=== PATIENT | male | born 1970 | race Caucasian/White ===

== ENCOUNTER 2025-04-05 12:08 | Inpatient (IN) | payer OTHER ==
[~2025-04-05] VITALS: Ht 172.7 cm; Wt 85.3 kg
[~2025-04-05 12:08] MED LIST: 'PARAFON FORTE500 M1 PO; CYCLOBENZAPRINE5 M3 PO; HYDROCODONE BIT1 T11 PO; MEDROL DOSEPAK4 MG PO; NAPROSYN500 MG PO
[2025-04-05 12:34] VITALS: BP 150/85
[2025-04-05] MEDS ORDERED: cefTRIAXone Sodium 1 GM/10 ML SYR IV ONE (12:45)
[2025-04-05] MEDS ORDERED: Ketorolac Tromethamine 15 MG/ML VIAL IV ONE (12:45)
[2025-04-05] MEDS ORDERED: ACETAMINOPHEN 325 MG TAB PO ONE (12:45)
[2025-04-05] MEDS ORDERED: SODIUM CHLORIDE 0.9% 1,000 ML IV ONE ×2 (12:45→14:40)
[2025-04-05 13:09] LABS: HEMATOCRIT 48.8 % (42.0-52.0); MEAN CELL VOLUME 89.2 fl (80.0-94.0); MEAN CORPUSCULAR HGB 29.6 pg (27.0-31.0); MEAN CORPUSCULAR HGB CONC 33.2 g/dl (33.0-37.0); PLATELET COUNT AUTOMATED 267 10*3/uL (130-400); RED BLOOD COUNT 5.47 10*6/uL (4.50-5.90); WHITE BLOOD COUNT 28.5 10*3/uL (4.8-10.8)
[2025-04-05 13:12] LABS: MANUAL DIFF REFLEX YES
[2025-04-05 13:29] LABS: BUN 13 mg/dl (9-23); CHLORIDE 101 mmol/L (98-107); POTASSIUM 4.2 mmol/L (3.4-5.1)
[2025-04-05 13:33] LABS: PLATELET SUFFICIENCY NORMAL (NORMAL); TOTAL CELLS COUNTED 100 #CELLS
[2025-04-05 14:23] VITALS: BP 148/78
[2025-04-05] MEDS ORDERED: IOHEXOL 300 MG/ML 100 ML VIAL IV ONE (14:45)
[2025-04-05] MEDS ORDERED: OXYCODONE5 M1 PO (15:30)
[2025-04-05] MEDS ORDERED: METHOCARBAMOL500 M1 PO (15:32)
[2025-04-05] MEDS ORDERED: BISACODYL 10 MG SUPP R PRN (18:10)
[2025-04-05] MEDS ORDERED: ACETAMINOPHEN 650 MG SUPP R PRN (18:10)
[2025-04-05] MEDS ORDERED: TEMAZEPAM 15 MG CAP PO PRN (18:10)
[2025-04-05] MEDS ORDERED: Ondansetron Hydrochloride 4 MG/2 ML VIAL IV PRN (18:10)
[2025-04-05] MEDS ORDERED: ACETAMINOPHEN 325 MG TAB PO PRN (18:10)
[2025-04-05] MEDS ORDERED: BISACODYL 5 MG TAB PO PRN (18:10)
[2025-04-05] MEDS ORDERED: Magnesium Hydroxide 30 ML UDC PO PRN (18:10)
[2025-04-05] MEDS ORDERED: SODIUM CHLORIDE 0.9% 500 ML IV ONE (18:25)
[2025-04-05] MEDS ORDERED: Vancomycin Hydrochloride 1,000 MG in SODIUM CHLORIDE 0.9% 250 ML IV SCH (18:40)
[2025-04-05] MEDS ORDERED: OXYCODONE HCL (IR) 5 MG TAB PO PRN (18:50)
[2025-04-05] MEDS ORDERED: METHOCARBAMOL 500 MG TAB PO PRN (18:50)
[2025-04-05] MEDS ORDERED: VANCOMYCIN HCL 1,250 MG in SODIUM CHLORIDE 0.9% 250 ML IV SCH (20:00)
[2025-04-05 20:19] VITALS: BP 113/76; BP 113/760
[2025-04-05] MEDS ORDERED: Piperacillin Sodium/Tazobact 50 ML IV SCH (22:00)
[2025-04-05 23:12] VITALS: BP 138/79
[2025-04-06 06:48] LABS: HEMATOCRIT 43.6 % (42.0-52.0); MEAN CELL VOLUME 90.3 fl (80.0-94.0); MEAN CORPUSCULAR HGB 29.6 pg (27.0-31.0); MEAN CORPUSCULAR HGB CONC 32.8 g/dl (33.0-37.0); MEAN PLATELET VOLUME 9.7 fl (9.6-12.3); PLATELET COUNT AUTOMATED 201 10*3/uL (130-400); RED BLOOD COUNT 4.83 10*6/uL (4.50-5.90)
[2025-04-06 06:57] LABS: ACT PARTIAL THROMBO TIME 30.5 SECONDS (20.0-32.1)
[2025-04-06 07:14] LABS: ALKALINE PHOSPHATASE 51 U/L (46-116); BUN 12 mg/dl (9-23); CHLORIDE 105 mmol/L (98-107); CHOLESTEROL 136 mg/dL (<200); FREE T4 1.03 ng/dl (0.89-1.76); LDL CHOLESTEROL 80 mg/dL (9-159); POTASSIUM 4.3 mmol/L (3.4-5.1); TOTAL PROTEIN 6.3 gm/dL (6.0-8.0); TRIGLYCERIDES 72 mg/dl (<150)
[2025-04-06 07:26] LABS: VITAMIN D, 25-HYDROXY 20.1 ng/mL (30-100)
[2025-04-06 07:27] LABS: SGPT/ALT < 7 U/L (5-49)
[2025-04-06 07:40] LABS: MANUAL DIFF REFLEX YES
[2025-04-06 07:48] LABS: PLATELET SUFFICIENCY NORMAL (NORMAL); TOTAL CELLS COUNTED 100 #CELLS
[2025-04-06 07:49] VITALS: BP 106/74
[2025-04-06 08:00] VITALS: BP 124/74
[2025-04-06] MEDS ORDERED: Enoxaparin Sodium 40 MG/0.4 ML SYR SC SCH (10:00)
[2025-04-06 12:00] VITALS: BP 124/75
[2025-04-06 16:00] VITALS: BP 119/75
[2025-04-06 20:00] VITALS: BP 116/83
[2025-04-07] VITALS: BP 119/70
[2025-04-07 08:00] VITALS: BP 134/92
[2025-04-07 12:00] VITALS: BP 113/77
[2025-04-07 16:00] VITALS: BP 125/70
[2025-04-07] MEDS ORDERED: VANCOMYCIN HCL 1,250 MG in SODIUM CHLORIDE 0.9% 250 ML IV SCH (16:00)
[2025-04-07 20:00] VITALS: BP 132/79
[2025-04-07] MEDS ORDERED: Melatonin 5 MG TABLET PO SCH (23:55)
[2025-04-08] VITALS: BP 138/78
[2025-04-08] MEDS ORDERED: MELATONIN10 M2 PO (00:04)
[2025-04-08 07:35] LABS: BASO # 0.1 10*3/uL (0.0-0.1); BASO % 0.7 % (0.0-1.0); EOS # 0.5 10*3/uL (0.0-0.4); HEMATOCRIT 42.8 % (42.0-52.0); MEAN CELL VOLUME 89.2 fl (80.0-94.0); MEAN CORPUSCULAR HGB CONC 33.6 g/dl (33.0-37.0); MEAN PLATELET VOLUME 9.7 fl (9.6-12.3); MONO # 1.4 10*3/uL (0.1-1.0); NEUT # 11.5 10*3/uL (2.3-7.9); NEUT % 75.8 % (47.0-73.0); PLATELET COUNT AUTOMATED 261 10*3/uL (130-400); WHITE BLOOD COUNT 15.2 10*3/uL (4.8-10.8)
[2025-04-08 08:00] VITALS: BP 126/83
[2025-04-08 08:01] LABS: BUN 10 mg/dl (9-23); CHLORIDE 107 mmol/L (98-107); POTASSIUM 4.2 mmol/L (3.4-5.1)
[2025-04-08 12:00] VITALS: BP 135/75
[2025-04-08 16:00] VITALS: BP 118/84
[2025-04-08 20:00] VITALS: BP 128/82
[2025-04-09] VITALS: BP 114/86
[2025-04-09 06:24] LABS: BASO # 0.2 10*3/uL (0.0-0.1); BASO % 1.1 % (0.0-1.0); EOS # 0.6 10*3/uL (0.0-0.4); EOS % 4.3 % (1.0-4.0); MEAN CELL VOLUME 91.5 fl (80.0-94.0); MEAN CORPUSCULAR HGB 29.6 pg (27.0-31.0); MEAN CORPUSCULAR HGB CONC 32.4 g/dl (33.0-37.0); MEAN PLATELET VOLUME 10.1 fl (9.6-12.3); MONO # 1.4 10*3/uL (0.1-1.0); MONO % 10.2 % (3.0-9.0); NEUT % 66.5 % (47.0-73.0); PLATELET COUNT AUTOMATED 294 10*3/uL (130-400); RED BLOOD COUNT 4.59 10*6/uL (4.50-5.90); RED CELL DISTRI WIDTH 12.8 % (0-14.5); WHITE BLOOD COUNT 13.5 10*3/uL (4.8-10.8)
[2025-04-09 06:33] LABS: BUN 9 mg/dl (9-23); CHLORIDE 108 mmol/L (98-107); POTASSIUM 3.4 mmol/L (3.4-5.1)
[2025-04-09 08:00] VITALS: BP 128/87
[2025-04-09 12:00] VITALS: BP 129/81
[2025-04-09] MEDS ORDERED: CEPHALEXIN500 M1 PO (12:00)
[2025-04-09] MEDS ORDERED: SEPTDS PO (12:00)
== END 2025-04-09 13:30 | disposition home or self-care (01) | DRG 872 ==
LOC: ED 12:08 → EDHOLD 17:49 → 4E 17:49
PROVIDERS: Nurse Practitioner Family; Student in an Organized Health Care Education/Training Program; ADMIT Internal Medicine; ATTEND Internal Medicine
DX: A41.9 Sepsis, unspecified organism (principal); L03.115 Cellulitis of right lower limb; E44.0 Moderate protein-calorie malnutrition; M15.0 Primary generalized (osteo)arthritis; F17.200 Nicotine dependence, unspecified, uncomplicated; E55.9 Vitamin D deficiency, unspecified; Z68.28 Body mass index [BMI] 28.0-28.9, adult; Z82.0 Family history of epilepsy and other diseases of the nervous system; Z79.899 Other long term (current) drug therapy